=== PATIENT | female | born 1970 | race Caucasian/White ===

== ENCOUNTER 2018-06-18 16:28 | Emergency (ER) | payer BC, OTHER ==
[2018-06-18] MEDS ORDERED: Morphine INJ* 10 MG/ML 1 ML CARPUJECT IV ONE (16:41)
[2018-06-18] MEDS ORDERED: Ondansetron INJ* 2 MG/ML VIAL IV ONE (16:41)
[2018-06-18] MEDS ORDERED: NS 0.9% 1000 ML* 1,000 ML IV ONE (16:41)
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
--- OUTSIDE RECORDS SUMMARY | 2018-06-18 17:03 | XMS REPORT | Continuity of Care Document ---
:1970 External Reference #:[id number] Author Name Becki Rivera NP Address [address] [place] [address] Care Team Providers Name Role Phone Shane Zimmer CONSUMER RELATIONS SPECIALIST Primary Care Physician Unavailable Payers Type Date Identification Numbers Payment Provider Subscriber Policy Number: [id number] [facility] Janneth Carter Group Name: [facility] [address] PayID: [id number] [place] [address] Onset: 2012 Policy Number: [id number] [facility] Insurance Fund Janneth Carter [place]ID: [id number] [place] [address] Onset: 2013 Policy Number: [id number] [facility] Janneth Carter [address] [place] [address] Advance Directives Description No Information Available Problems Date Description Provider Status Onset: 02/06/2012 Anxiety state Cassi Potter M.D. Active Family History Description No Information Available Social History Type Date Description Comments Sex Unknown Occupation Works as a patient health care specialist at [employer] Tobacco Use Start: Unknown regularly smokes cigarettes Tobacco Use Start: Unknown trying to quit down to 6 cigs/day Tobacco Use Start: Unknown Patient is a current smoker, smokes every day Allergies, Adverse Reactions, Alerts Description No Known Drug Allergies Medications Medication Date Status Form Strength Qnty SIG Indications Ordering Provider Naproxen 06/03 Active Tablets 500mg 30tabs one tab M54.5 by mouth Dannile, twice CONSUMER RELATIONS SPECIALIST daily with food for 5 days then as needed for pain/infl ammation up to twice a day Cyclobenzaprine 06/03 Active Tablets 5mg 30tabs Take 1 or M54.5 Becki HCL 2 tablets Shortle, by mouth CONSUMER RELATIONS SPECIALIST 3 times per day as needed for muscle spasm Clotrimazole/Bet 12/16 Active Cream 1-0.05% 15gm 1 apply R21 Jesus amethasone to Theronmn Dipropionate [facility] [place] area twice a day for 2 weeks Cervical 08/09 Active Kit OneKit use as needed Gianluca Zimmer Kit/Overdoor/Com for neck [employer] plete pain Carisoprodol 06/06 Hx Tablets 350mg 60sixty 1 tablet S29.011A three Shayna, - times a [employer] 07/20 day needed muscle spasm Hydrocodone-Acet 06/06 Hx Tablets 5-325mg 20tabs 1 by .011A aminophen mouth q4 Shayna, - - 6 hours [employer] 07/20 as needed Ibuprofen 06/06 Hx Tablets 800mg 120tabs take one .011 tablet by Shayna, - mouth [employer] 1030 every hours with food as needed for pain Tramadol HCL 08/02 Hx Tablets 50mg 20twent 1 po 726.19 y q4-6hr Gianluca Zimmer, - prn [employer] 07/20 severe pain Soma 08/02 Hx Tablets 350mg 30tabs 1 po bid 726.19 prn Gianluca Zimmer, - muscle [employer] 07/20 spasm Permethrin 04/06 Hx Cream 5% 60gm apply to skin from Shayna, - neck to [employer] 05/31 soles feet, wash after 8-14 hours, may repeat in 14 days Gabapentin 11/05 Hx Capsules 300mg 60caps take 1 capsule Gianluca Zimmer, - by mouth [employer] 1030 two times /2014 a day for nerve pain. TENS Unit 10/29 Hx With use if Electrodes needed Gianluca Zimmer, - for [employer] 10/30 shoulder pain per PT direction Naproxen 10/29 Hx Tablets 500mg 30tabs one tab by mouth Gianluca Zimmer, - twice [employer] 07/20 daily with food for pain/infl amation Hydrocodone/Acet 10/29 Hx Tablets 5-325mg 30thirt 1 po q4 wnt aminophen y hrs prn Gianluca Zimmer, - [employer] 08/02 Clotrimazole/Bet 10/07 Hx Cream 1-0.05% 15gm apply to 110.5 [facility] amethasone affected Gianluca Zimmer, Dipropionate - area tid [employer] 07/20 until resolved Methylprednisolo 10/07 Hx Tablets 4mg 1pack take 995.3 Shawnti ne Dose Pack oraly per Gianluca Zimmer, - package [employer] 10/29 direction s Hydroxyzine HCL 10/07 Hx Tablets 25mg 60tabs 1 or 2 po 995.3 nt qid prn Gianluca Zimmer, - itching [employer] 07/20 Carisoprodol 07/09 Hx Tablets 350mg 30tabs take one 719.41 tablet by Gianluca Zimmer, - mouth [employer] 07/20 times daily as needed for muscle spasm Ibuprofen 07/09 Hx Tablets 600mg 30tabs 1 tid prn pain, Gianluca Zimmer, - take with [employer] 10/29 food Paroxetine HCL 02/05 Hx Tablets 10mg 60tabs take one 300.00 tablet by Vanessa - mouth Tariq, 07/20 daily at M.D. bedtime for a week, then increase to two po at bedtime Alprazolam 02/05 Hx Tablets 0.25mg 40tabs 1-2 po up 300.00 to tid Vanessa - prn Tariq, 07/20 anxiety M.D. or 2 at for sleep Robitussin ac 12/03 Hx 150ml 1-2 tsp 487.1 po q4-6hr Gianluca Zimmer, - prn [employer] 05/16 cough/nini n Hydroxyzine HCL 11/07 Hx Tablets 25mg 40tabs 1 or 2 po 704.9 Shawnti qid prn R. Storm, - itching [employer] 11/07 Hydroxyzine HCL 11/07 Hx Tablets 25mg 40tabs 1 po qid Shawnt prn R. Storm, - itching [employer] 05/16 Triamcinolone 11/07 Hx Lotion 0.1% 1Bottle apply to Shawnti Acetonide itchy R. Storm, - spots tid [employer] 05/16 prn itching Excuse For Work 06/08 Hx needs to 465.9 be out of Ambriz, - work M.D. 07/08 until 06/06-06/09 Excuse For Work 04/22 Hx seen Ammy today for P. - acute Blegen, 06/07 visit for M.D. illness/ pharyngit is- needs to be out of work next 1-2 days until feeling better Penicillin VK 09/16 Hx Tablets 500mg 20tabs 1 PO bid Ibis /2006 for 10 A. - days Eduard, 06/07 F.N.P.C. /2009 Vicodin 02/02 Hx Tablets 5mg;500 mg 10tabs one po at 728.71 Ibis hs for A. - severe Eduard, 06/07 pain F.N.P.C. /2009 No Work 02/02 Hx 02/02/07-5 Ibis /2006 A. - due to Eduard, 06/07 plantar F.N.P.C. /2009 fasciitis Kwell Lotion 11/03 Hx 10Oz apply 133.0 overnight Vanessa Potter, 11/03 directed M.D. under the jawline, for patient and partner Elimite 11/03 Hx Cream 5% 133.0 Vanessa Potter, 11/03 M.D. Elimite 11/03 Hx Cream 5% QS apply 133.0 from neck Vanessa - laurence Potter, 06/07 entire M.D. body, leave on for 8 hours, then wash off.for A total of 2 persons in houshold Toradol 10/20 Hx Tablets 10mg 40tabs one po q 6 h prn K.W. - severe Tariq, 06/07 pain, to .D. replace ibuprofen Neurontin 10/20 Hx Capsules 100mg 30caps 1 po qhs prn leg K.W. - pain , Tariq, 06/07.D. increase to 1 po tid prn Medrol Dose Pack 10/20 Hx Pack(S) 4mg/21 1units Use as Directed K.W. - Tariq, 06/07.D. Cipro 03/06 Hx Tablets 250mg 14tabs one bid x Clayton 7 days Ambriz, - M.D. 06/04 Bactrim 01/30 Hx Tablets 80mg;400 mg 10tabs one po 599.0 Ibis bid for 5 A. - days Eduard, 03/11 F.N.P.C. Vermox 09/23 Hx Chewtabs 100mg 4units One qd X1 Peace For Brenda, - Pinworm, M.D. 01/30 Repeat X1 After 7 Days Medications Administered in Office Medication Date Status Form Strength Qnty SIG Indications Ordering Provider TB,Intradermal Administered Injection Lab and (PPD, Mantoux) 012 Office Services TB,Intradermal Administered Injection Lab and (PPD, Mantoux) 011 Office Services Immunizations CPT Code Status Date Vaccine Lot # [id number] Given 05/24/2011 MMR (Measles,Mumps,Rubella) [id number] Given 05/16/2011 Tdap (Adacel) [id number] Given 06/21/2009 MMR (Measles,Mumps,Rubella) [id number] Given 05/02/2003 DT (Adult) Vital Signs Date Vital Result Comment 06/03/2018 9:31am Weight 196.00 lb Weight 88.906 kg BP Systolic 120 mmHg BP Diastolic 80 mmHg Heart Rate 86 /min Body Temperature 98.0 F Respiratory Rate 18 /min 12/16/2017 9:05am Weight 200.00 lb Weight 90.720 kg BP Systolic 120 mmHg BP Diastolic 70 mmHg Heart Rate 74 /min Body Temperature 98.3 F Respiratory Rate 16 /min O2 % BldC Oximetry 98 % 07/20/2015 1:36pm Weight 194.00 lb Weight 87.998 kg BP Systolic 112 mmHg BP Diastolic 80 mmHg Heart Rate 92 /min Body Temperature 98.4 F Height 68 inches 5'8" BMI (Body Mass Index) 29.5 kg/m2 06/11/2015 2:33pm Weight 195.00 lb Weight 88.452 kg BP Systolic 110 mmHg BP Diastolic 80 mmHg Heart Rate 72 /min 06/06/2015 9:49am Weight 192.00 lb Weight 87.091 kg BP Systolic 120 mmHg BP Diastolic 78 mmHg Heart Rate 76 /min 08/02/2013 3:56pm Weight 189.00 lb Weight 85.730 kg BP Systolic 110 mmHg BP Diastolic 72 mmHg Heart Rate 80 /min Body Temperature 98.0 F Height 68 inches 5'8" BMI (Body Mass Index) 28.7 kg/m2 11/22/2012 11:08am Weight 189.00 lb Weight 85.730 kg BP Systolic 106 mmHg BP Diastolic 68 mmHg Heart Rate 108 /min Body Temperature 97.7 F 11/05/2012 11:14am Weight 190.00 lb Weight 86.184 kg BP Systolic 136 mmHg BP Diastolic 88 mmHg Heart Rate 116 /min Body Temperature 98.4 F O2 % BldC Oximetry 99 % 10/29/2012 12:11pm Weight 188.00 lb Weight 85.277 kg BP Systolic 130 mmHg BP Diastolic 70 mmHg Heart Rate 118 /min 10/25/2012 2:22pm Weight 188.00 lb Weight 85.277 kg BP Systolic 120 mmHg BP Diastolic 80 mmHg Heart Rate 88 /min Body Temperature 97.8 F 10/07/2012 4:34pm Weight 187.00 lb Weight 84.823 kg BP Systolic 114 mmHg BP Diastolic 72 mmHg Heart Rate 108 /min Body Temperature 97.9 F 07/13/2012 2:11pm Weight 178.00 lb Weight 80.741 kg BP Systolic 98 mmHg BP Diastolic 60 mmHg Heart Rate 82 /min 07/09/2012 10:57am Weight 178.00 lb Weight 80.741 kg BP Systolic 108 mmHg BP Diastolic 60 mmHg Heart Rate 83 /min 02/18/2012 11:52am Weight 172.00 lb Weight 78.019 kg BP Systolic 140 mmHg BP Diastolic 78 mmHg Heart Rate 76 /min Body Temperature 97.8 F 02/06/2012 11:52am Weight 174.00 lb Weight 78.926 kg BP Systolic 120 mmHg BP Diastolic 90 mmHg Heart Rate 88 /min 06/04/2011 9:12am Weight 163.00 lb Weight 73.937 kg BP Systolic 118 mmHg BP Diastolic 64 mmHg Heart Rate 100 /min Last Menstrual Period [id number] 05/16/2011 8:09am Weight 163.00 lb Weight 73.937 kg BP Systolic 104 mmHg BP Diastolic 56 mmHg Heart Rate 96 /min Body Temperature 98.0 F Right Visual Acuity Distance 20/25 Left Visual Acuity Distance 20/25 12/03/2010 11:06am Weight 170.00 lb Weight 77.112 kg BP Systolic 116 mmHg BP Diastolic 70 mmHg Heart Rate 76 /min Body Temperature 98.2 F 11/07/2010 2:49pm Weight 172.00 lb Weight 78.019 kg BP Systolic 112 mmHg BP Diastolic 70 mmHg Heart Rate 88 /min Body Temperature 97.6 F 06/08/2010 9:39am Weight 154.00 lb Weight 69.854 kg BP Systolic 110 mmHg BP Diastolic 78 mmHg Heart Rate 88 /min Body Temperature 98.5 F 04/22/2008 10:22am BP Systolic 112 mmHg BP Diastolic 66 mmHg Heart Rate 78 /min Body Temperature 97.8 F 02/02/2007 12:17pm Weight 147.00 lb Weight 66.679 kg BP Systolic 120 mmHg BP Diastolic 70 mmHg Heart Rate 64 /min 11/03/2006 10:47am BP Systolic 102 mmHg BP Diastolic 60 mmHg Heart Rate 76 /min Body Temperature 97.6 F 10/20/2006 11:59am Weight 147.50 lb Weight 66.906 kg BP Systolic 120 mmHg BP Diastolic 68 mmHg Heart Rate 68 /min 03/11/2005 11:12am Weight 145.00 lb Weight 65.772 kg BP Systolic 108 mmHg BP Diastolic 70 mmHg Body Temperature 97.8 F 03/06/2005 4:37pm Weight 147.00 lb Weight 66.679 kg BP Systolic 112 mmHg BP Diastolic 66 mmHg Body Temperature 98.2 F 01/30/2005 11:15am Weight 144.00 lb Weight 65.318 kg BP Systolic 102 mmHg BP Diastolic 68 mmHg Body Temperature 98.0 F Results Test Date Facility Test Result H/L Range Note Laboratory test 07/20/2015 [facility] TSH 1.56 ?IU/ mL 0.34-5.60 finding [phone] (Thyroid Stim Horm) CBC Auto Diff 07/20/2015 [facility] White Blood 7.8 10^3/uL 4.8-10.8 [phone] Count Red Blood Count 4.52 10^6/uL 4.0-5.4 Hemoglobin 14.2 g/dL 12.0-16.0 Hematocrit 43 % 35-47 Mean Corpuscular Volume 95 fL 80-97 Mean Corpuscular Hemoglobin 32 pg High 27-31 Mean Corpuscular HGB Conc 33 g/dL 31-36 Red Cell Distribution Width 13 % 10.5-15 Platelet Count 258 10^3/uL 150-450 Mean Platelet Volume 9 um3 7.4-10.4 Abs Neutrophils 4.7 10^3/uL 1.5-7.7 Abs Lymphocytes 2.3 10^3/uL 1.0-4.8 Abs Monocytes 0.5 10^3/uL 0-0.8 Abs Eosinophils 0.1 10^3/uL 0-0.6 Abs Basophils 0 10^3/uL 0-0.2 Abs Nucleated RBC 0 10^3/uL Granulocyte % 60.9 % 38-83 Lymphocyte % 30.1 % 25-47 Monocyte % 7.0 % 1-9 Eosinophil % 1.4 % 0-6 Basophil % 0.6 % 0-2 Nucleated Red Blood Cells % 0 Comp Metabolic Panel 07/20/2015 [facility] Sodium 134 mmol/L 133-145 [phone] Potassium 4.4 mmol/L 3.5-5.0 Chloride 105 mmol/L 101-111 Co2 Carbon Dioxide 26 mmol/L 22-32 Anion Gap 3 mmol/L 2-11 Glucose 83 mg/dL 70-100 Blood Urea Nitrogen 18 mg/dL 6-24 Creatinine 0.89 mg/dL 0.51-0.95 BUN/Creatinine Ratio 20.2 High 8-20 Calcium 9.2 mg/dL 8.6-10.3 Total Protein 6.5 g/dL 6.4-8.9 Albumin 4.1 g/dL 3.2-5.2 Globulin 2.4 g/dL 2-4 Albumin/Globulin Ratio 1.7 1-3 Total Bilirubin 0.40 mg/dL 0.2-1.0 Alkaline Phosphatase 48 U/L 34-104 Alt 11 U/L 7-52 Ast 10 U/L Low 13-39 Egfr Non- 68.9 >60 Egfr 88.6 >60 1 Lipid Profile 07/20/2015 [facility] Triglycerides 144 mg/dL 2 (Trig/Chol/HDL) [phone] Cholesterol 161 mg/dL 3 HDL Cholesterol 64.1 mg/dL 4 LDL Cholesterol 68 mg/dL 5 CBC No Diff 11/05/2012 [facility] White Blood 5.8 10^ 3/uL 4.8-10.8 [phone] Count Red Blood Count 4.35 10^6/uL 4.0-5.4 Hemoglobin 13.7 g/dL 12.0-16.0 Hematocrit 40 % 35-47 Mean Corpuscular Volume 92 fL 80-97 Mean Corpuscular Hemoglobin 32 pg High 27-31 Mean Corpuscular HGB Conc 34 g/dL 31-36 Red Cell Distribution Width 13 % 10.5-15 Platelet Count 279 10^3/uL 150-450 Mean Platelet Volume 9 um3 7.4-10.4 Comp Metabolic Panel 11/05/2012 [facility] Sodium 135 mmol/L 133-145 [phone] Potassium 4.4 mmol/L 3.5-5.0 Chloride 105 mmol/L 101-111 Co2 Carbon Dioxide 24.0 mmol/L 22-32 Anion Gap 6.0 mmol/L 2-11 Glucose 90 mg/dL 70-100 Blood Urea Nitrogen 12 mg/dL 6-24 Creatinine 0.90 mg/dL 0.50-1.40 BUN/Creatinine Ratio 13.3 8-20 Calcium 9.1 mg/dL 8.1-9.9 Total Protein 6.3 g/dL 6.2-8.1 Albumin 3.8 g/dL 3.6-5.4 Globulin 2.5 g/dL 2-4 Albumin/Globulin Ratio 1.5 1-3 Total Bilirubin 0.6 mg/dL 0.4-1.5 Alkaline Phosphatase 45 U/L 30-110 Alt 17 U/L 14-54 Ast 18 U/L 12-42 Egfr Non- 69.0 >60 Egfr 88.7 >60 6 Laboratory test 11/05/2012 [facility] TSH (Thyroid 2.07 0.34-5.60 finding [phone] Stimulating miu/mL Horm) Erythrocyte Sed Rate 10 mm/Hr 0-14 Shannan (Anti-Nuclear AB) Screen Negative Negative Wheat Allergen IgE <0.35 kU/L 7 Antistreptolysin O Titer Negative IU/mL <200 Iu/mL 8 Celiac Panel 11/05/2012 [facility] Immunoglobulin A 210 mg/dL 61 - 356 [phone] Tissue Transglutaminase IgA Ab <1.2 U/mL 9 Celiac Interpretation See Comment 10 Laboratory test 11/05/2012 [facility] Cat Epithelium <0.35 kU/L 11 finding [phone] Allergen IgE Dog Dander Allergen IgE <0.35 kU/L 12 Alternaria tenuis IgE Allergen <0.35 kU/L 13 Aspergillus Fumigatus IgE <0.35 kU/L 14 Cladosporium herbarum IgE <0.35 kU/L 15 Helminthosporium halodes IgE <0.35 kU/L 16 Mucor racemosus Allergen IgE <0.35 kU/L 17 Penicillium notatum Allerg IgE <0.35 kU/L 18 Joya albicans Allergen IgE 9.90 kU/L 19 Comp Metabolic Panel 02/06/2012 [facility] Sodium 136 mmol/L 135-145 [phone] Potassium 4.2 mmol/L 3.5-5.0 Chloride 106 mmol/L 101-111 Co2 (Carbon Dioxide) 25.0 mmol/L 22-32 Anion Gap 5.0 mmol/L 2-11 20 Glucose 95 mg/dL 70-100 BUN 11 mg/dL 6-24 Creatinine 0.9 mg/dL 0.50-1.40 One Over Creatinine 1.11 BUN/Creatinine Ratio 12.2 8-20 Calcium 9.3 mg/dL 8.1-9.9 Total Protein 6.3 GM/DL 6.2-8.1 Albumin 3.7 GM/DL 3.6-5.4 Globulin 2.6 GM/DL 2-4 Albumin/Globulin Ratio 1.4 1-3 Bilirubin Total 0.6 mg/dL 0.4-1.5 21 Alkaline Phosphatase 40 U/L 30-110 Alt (SGPT) 15 U/L 14-54 Ast (Sgot) 16 U/L 12-42 eGFR Non- 69.3 > 60 eGFR 89.2 > 60 22 CBC Auto Diff 02/06/2012 [facility] White Blood 7.8 CUMM 4.8-10.8 [phone] Count Red Cell Count 4.37 CUMM 4.2-5.4 Hemoglobin 14.2 g/dL 12.0-16.0 Hematocrit 40 % 35-47 Mean Corpuscular Volume 92 um3 79-97 Mean Corpuscular Hemoglob 32 pg High 27-31 Mean Corpuscular HGB Cone 35 g/dL 32-36 Redcell Distribution WDTH 13 % 10.5-15 Platelet Count 229 CUMM 150-450 Mean Platelet Volume 9.6 um3 7.4-10.4 Gran % 67.9 % 38-83 Lymph % 23.6 % Low 25-47 Mononuclear % 7.3 % 1-9 Eosinophil % 1.0 % 0-6 Basophil % 0.2 % 0-2 Abs Lymphs 1.8 1.0-4.8 Abs Mononuclear 0.6 0-0.8 Absolute Neutrophil Count 5.3 1.5-7.7 Abs Eosinophils 0.1 0-0.6 Abs Basophils 0 0-0.2 Laboratory test 02/06/2012 [facility] TSH 1.92 MIU/ ML 0.34-5.60 finding [phone] Laboratory test 06/04/2011 [facility] Cytology ------ ------ 23 finding [phone] ---- <SEE NOTE> Urine DIP 05/16/2011 [facility] Leukocytes neg Neg (607)- - Urine Nitrites neg Neg Urine pH 5 5-6 Total Protein, Urine neg Neg Urine Glucose norm Norm Urine Ketones neg Neg Urobilinogen norm Norm Urine Bilirubin neg Neg Urine Blood neg Neg Specific [place] n/a Low 1.01-1.02 Laboratory test 05/16/2011 [facility] Varicella 2.03 High 0.00-0.90 24 finding [phone] Zoster V index AB,Igg Hep B Surface Antibody 108 mIU/ml 25 Laboratory test 12/03/2010 In House Lab Flu Test A&B, pos finding (607)- - [facility] test 06/08/2010 In House Lab Flu Test A&B, neg finding (607)- - [facility] test 04/22/2008 In House Lab Strep Screen neg Neg finding (607)- - Laboratory test 04/22/2008 [facility] Throat Culture NORMAL THROAT 26 finding [phone] Full [place] <SEE NOTE> Mumps/Measles/Rube 12/31/2007 [facility] Mumps Titer Igg 0.80 Index 27 lla [phone] AB Rubeola Titer Igg AB 2.10 Index 28 Rubella Titer Igg AB 56.0 IU/mL 29 Urine DIP 03/11/2005 In House Lab Leukocytes NEG Neg (607)- - Urine Nitrites NEG Neg Urine pH 5 5-6 Total Protein, Urine NEG Neg Urine Glucose NORM Norm Urine Ketones NEG Neg Urobolinogen NORM Norm Urine Bilirubin NEG Neg Urine Blood NEG Neg Urine DIP 03/06/2005 In House Lab Leukocytes NEG Neg (607)- - Urine Nitrites NEG Neg Urine pH 5 5-6 Total Protein, Urine NEG Neg Urine Glucose NORM Norm Urine Ketones NEG Neg Urobolinogen NORM Norm Urine Bilirubin NEG Neg Urine Blood TRACE Neg Specific [place] NA Low 1.01-1.02 Laboratory test 03/06/2005 [facility] Urine Culture MANY [STAPHYLOCO 30 finding [phone] Sensitivi <SEE NOTE> Urine DIP 01/30/2005 [facility] House Lab Leukocytes NEG Neg (607)- - Urine Nitrites NEG Neg Urine pH 5 5-6 Total Protein, Urine NEG Neg Urine Glucose NORM Norm Urine Ketones NEG Neg Urobolinogen NORM Norm Urine Bilirubin NE Neg Urine Blood 250 High Neg 1 Because ethnic data is not always readily available, this report includes an eGFR for both -Americans and non- Americans. The National Kidney Disease Education Program (NKDEP) does not endorse the use of the MDRD equation for patients that are not between the ages of 18 and 70, are , have extremes of body size, muscle mass, or nutritional status, or are non- or non-. According to the National Kidney Foundation, irrespective of diagnosis, the stage of the disease is based on the level of kidney function: Stage Description GFR(mL/min/1.73 m(2)) 1 Kidney damage with normal or decreased GFR 90 2 Kidney damage with mild decrease in GFR 60-89 3 Moderate decrease in GFR 30-59 4 Severe decrease in GFR 15-29 5 Kidney failure <15 (or dialysis) 2 Desirable <150 Borderline high 150-199 High 200-499 Very High >500 3 Desirable <200 Borderline high 200-239 High >239 4 Low <40 Desirable: 40-60 High: >60 5 Desirable: <100 mg/dL Near Optimal: 100-129 mg/dL Borderline High: 130-159 mg/dL High: 160-189 mg/dL Very High: >189 mg/dL 6 Because ethnic data is not always readily available, this report includes an eGFR for both -Americans and non- Americans. The National Kidney Disease Education Program (NKDEP) does not endorse the use of the MDRD equation for patients that are not between the ages of 18 and 70, are , have extremes of body size, muscle mass, or nutritional status, or are non- or non-. According to the National Kidney Foundation, irrespective of diagnosis, the stage of the disease is based on the level of kidney function: Stage Description GFR(mL/min/1.73 m(2)) 1 Kidney damage with normal or decreased GFR 90 2 Kidney damage with mild decrease in GFR 60-89 3 Moderate decrease in GFR 30-59 4 Severe decrease in GFR 15-29 5 Kidney failure <15 (or dialysis) 7 Class 0 (Negative <0.35) Test Performed by: [place] [address] Medical Claims Specialist: Speedy Leary III, M.D. 8 Normal values may vary with age, season and geographic area. Titers above upper limits may be indicative of infection, however only a two dilution rise in titer is required to be considered significant. ASO titer will usually rise above upper limits within one week of exposure, increase to peak levels at 3-5 weeks and return to baseline level at 6-12 twelve months. 9 -- REFERENCE VALUE -- <4.0 (Negative) Test Performed by: [place] [address] Medical Claims Specialist: Speedy Leary III, M.D. 10 Negative serology. Celiac disease unlikely. However, approximately 10% of patients with celiac disease are seronegative. Also, patients who are already adhering to a gluten-free diet may be seronegative. If celiac disease is highly clinically suspected, consider HLA-DQ typing. Test Performed by: [place] [address] Medical Claims Specialist: Speedy Leary III, M.D. 11 Class 0 (Negative <0.35) Test Performed by: [place] [address] Medical Claims Specialist: Speedy Leary III, M.D. 12 Class 0 (Negative <0.35) Test Performed by: [place] [address] Medical Claims Specialist: Speedy Leary III, M.D. 13 Class 0 (Negative <0.35) Test Performed by: [place] [address] Medical Claims Specialist: Speedy Leary III, M.D. 14 Class 0 (Negative <0.35) Test Performed by: [place] [address] Medical Claims Specialist: Speedy Leary III, M.D. 15 Class 0 (Negative <0.35) Test Performed by: [place] [address] Medical Claims Specialist: Speedy Leary III, M.D. 16 Class 0 (Negative <0.35) Test Performed by: [place] [address] Medical Claims Specialist: Speedy Leary III, M.D. 17 Class 0 (Negative <0.35) Test Performed by: [place] [address] Medical Claims Specialist: Speedy Leary III, M.D. 18 Class 0 (Negative <0.35) Test Performed by: [place] [address] Medical Claims Specialist: Speedy Leary III, M.D. 19 Class 3 (Positive 3.50-17.4) Test Performed by: [address] [address] Medical Claims Specialist: Speedy Leary III, M.D. 20 Anion gap measurement may be of limited value in the presence of any alkalosis, especially in a combined acid base disorder. . 21 A metabolite of Naproxen, O-desmethylnaproxen, has been shown to interfere with the Jendrassik-Tiffanie method for measuring total bilirubin. Samples from patients who have taken Naproxen have shown spurious elevation in total bilirubin levels. 22 Because ethnic data is not always readily available, this report includes an eGFR for both -Americans and non- Americans. The National Kidney Disease Education Program (NKDEP) does not endorse the use of the MDRD equation for patients that are not between the ages of 18 and 70, are , have extremes of body size, muscle mass, or nutritional status, or are non- or non-. According to the National Kidney Foundation, irrespective of diagnosis, the stage of the disease is based on the level of kidney function: Stage Description GFR(mL/min/1.73 m(2)) 1 Kidney damage with normal or decreased GFR 90 2 Kidney damage with mild decrease in GFR 60-89 3 Moderate decrease in GFR 30-59 4 Severe decrease in GFR 15-29 5 Kidney failure <15 (or dialysis) 23 ---- RUN DATE: 06/05/11 [facility] NMI LIVE PAGE 1 RUN TIME: 1500 Specimen Inquiry RUN USER: INTERFACE -- Name: JANNETH CARTER Status: REG REF Re06/04/11 Age/Sex: 41/F Unit#: [id number] Location: [facility] : 72 -- Specimen: [id number] SOUT Spec Date: 06/04/[address]: Ceci sheffield NP Spec Type: CYTOLOGY Received: 06/05/11 Copies to: SOURCE ECTOCERVICAL/ENDOCERVICAL Thin Prep with Reflex HPV Test PATIENT INFORMATION ACTUAL COLLECTION DATE: 06/04/11 LAST MENSTRUAL PERIOD: 05/21/11 PATIENT HISTORY: IUD ADEQUACY OF SPECIMEN Satisfactory for evaluation * Transformation zone component identified * DIAGNOSIS NEGATIVE FOR INTRAEPITHELIAL LESION OR MALIGNANCY * This Pap test was evaluated with the assistance of the ThinPrep Pap Test Imaging System. The Pap Smear is a screening test designed to aid in the detection of premalign ant and malignant conditions of the uterine cervix. It is not a diagnostic procedure a nd should not be used as the sole means of detecting cervical cancer. Both false- positiv e and false-negative reports do occur. Depending on your risk status, a Pap smear eliane uld be obtained and evaluated every one to three years. Final Interpretation electronically signed by: Nura HUGHES(ASCP) 06/05/11 1500 -- -- DEPARTMENT OF PATHOLOGY, [address] [place] [address] [facility] Permit #[id number] Kyle Serna M.D. Director Jacob Ortega M.D. Roper Operator Dir rome -- 24 Negative <0.91 Equivocal 0.91 - 1.09 Positive >1.09 25 The CDC defines an adequate response to vaccinations as a result >=10 mIU/ml. Results 8-12 mIU/ml are considered equivocal and should be interpreted in the context of other factors (clinical status, follow-up testing, associated risk factors etc.). Repeat testing is suggested if clinically indicated. 26 NORMAL THROAT URBANO 27 < .90 Neg (No Immunity) .91- 1.09 Equivocal >=1.10 Positive . 28 < 0.90 Neg (No Immunity) 0.91- 1.09 Equivocal >=1.10 Positive . 29 Negative(Nonimmune): < 5.0 Equivocal: 5.0 - 10.0 Positive(Immune): > 10.0 30 MANY [STAPHYLOCOCCUS SAPROPHYTICUS] Routine testing of urine isolates of S. saprophyticus is not advised, because infections respond to concentrations achieved in urine of antimicrobial agents commonly used to treat acute, uncomplicated urinary tract infections (e.g. nitrofurantoin, trimethoprim+/- sulfamethoxazole, or a fluoroquinolone). NCCLS September 2001 STAPHYLOCOCCUS SAPROPHYTICUS Procedures Description No Information Available Encounters Type Date Location Provider Dx Diagnosis Office Visit 12/16/2017 Main Office Jesus Leonardonohemi, R21 Rash and other 9:00a nonspecific skin eruption Z12.31 Encntr screen mammogram for malignant neoplasm of breast Office Visit 07/20/2015 1:30p Main Office Shane Zimmer, Z00.00 Encntr for general [employer] adult medical exam w/o abnormal findings S46.012S Strain of musc/tend the rotator cuff of l shoulder, sequela Office Visit 06/11/2015 2:30p Main Office Shane Hough S29.011A Strain of muscle Storm, [employer] and tendon of front wall of thorax, init Office Visit 06/06/2015 9:45a Main Office Ceci Corral S29.011A Strain of muscle [employer] and tendon of front wall of thorax, init Office Visit 08/02/2013 3:45p Main Office Shane Hough 726.19 Shoulder Storm, [employer] Disorders Other Spec 729.2 Neuralgia Neuritis & Radiculitis Unspec Office Visit 05/31/2013 10:45a Main Office Shane Zimmer, 726.19 Shoulder Disorders [employer] Other Spec 723.1 Cervicalgia 850.9 Concussion Unspec 924.8 Contusion Multiple Sites Not Class Elsewhere Office Visit 11/22/2012 11:00a Main Office Shane Zimmer, [employer] 723.1 Cervicalgia 726.19 Shoulder Disorders Other Spec Office Visit 11/05/2012 11:48a Main Office Shane Zimmer, 726.19 Shoulder Disorders [employer] Other Spec 691.8 Dermatitis Atopic & Related Conditions Other Office Visit 11/05/2012 11:15a Main Office Shane Zimmer [employer] 723.1 Cervicalgia 726.19 Shoulder Disorders Other Spec Office Visit 10/29/2012 12:00p Main Office Shane Zimmer [employer] 723.1 Cervicalgia 726.19 Shoulder Disorders Other Spec Office Visit 10/25/2012 2:15p Main Office Shane Hough Storm, [employer] 723.1 Cervicalgia 726.19 Shoulder Disorders Other Spec Office Visit 10/07/2012 4:30p Main Office Shane Hough 110.5 Dermatophytosis Body Storm, [employer] 995.3 Allergy Unspec Office Visit 07/13/2012 2:00p Main Office Shane Hough 723.1 Cervicalgia Storm, [employer] Office Visit 02/18/2012 11:30a Main Office Cassi Mendez 300.00 Anxiety State Sarah Potter Unspec Office Visit 02/06/2012 11:45a Main Office Cassi Mendez 300.00 Anxiety State Sarah Potter Unspec Office Visit 06/04/2011 9:00a Main Office Ceci Corral, V72.31 Routine Intellectual Property Legal Assistant [employer] Examination Office Visit 05/16/2011 8:00a Main Office Ceci Corral, V70.0 Examination General [employer] Medical Routine [facility] V06.1 Hzczaltzuv-Ebwhiod-Hfyozjpd Combined (DTaP) Office Visit 12/03/2010 10:45a Main Office Shane Hough 487.1 Influenza W/ Other Storm, [employer] Respiratory Manifestations Office Visit 11/07/2010 3:00p Main Office Shane Hough 704.9 Hair & Hair Follicle Storm, [employer] Diseases Unspec Office Visit 06/08/2010 9:30a Main Office Clayton Ambriz, 465.9 URI Upper M.D. Respiratory Infections Acute Unspec Sites Office Visit 04/22/2008 10:15a Main Office Ammy Purcell 462 Pharyngitis Acute Blegen, M.D. Office Visit 02/02/2007 12:15p Main Office Ibis Nahs8.71 Fibromatosis Plantar Eduard, Fascia F.N.P.C. Office Visit 11/03/2006 10:45a Main Office Cassi Mendez 133.0 Scabies Sarah Potter 133.0 Scabies Office Visit 03/11/2005 11:00a Main Office Cassi Mendez 592.0 Calculus Of Sarah Potter Kidney 599.89 Urinary Tract Other Spec Disorders Office Visit 03/06/2005 4:30p Main Office Clayton Ambriz M.D. 599.0 UTI Urinary Tract Infection Site Not Spec Office Visit 01/30/2005 11:00a Main Office Ibis Ybarra 599.0 UTI Urinary Tract Heidy Chapa Infection Site Not Spec Plan of Treatment 06/03/2018 - Becki Rivera, NPM54.5 Low back painNew Medication:Naproxen 500 mg - one tab by mouth twice daily with food for 5 days then as needed for pain/ inflammation up to twice a dayCyclobenzaprine HCL 5 mg - Take 1 or 2 tablets by mouth 3 times per day as needed for muscle spasmComments:No acute concerns today.Supportive care and medications discussedPatient to follow up next week for reassessmentWork note provided.Educated on new/worsening symptoms and when to call/return. Patient stated understanding and agrees to planFollow up:print work note follow up next week
--- OUTSIDE RECORDS SUMMARY | 2018-06-18 17:03 | XMS REPORT | Continuity of Care Document ---
:1970 External Reference #:[id number] Author Name Becki Rivera NP Address [address] [place] [address] Care Team Providers Name Role Phone Shane Zimmer HEAD FIELD HOCKEY COACH Primary Care Physician Unavailable Payers Type Date Identification Numbers Payment Provider Subscriber Policy Number: [id number] [facility] Janneth Hsu Group Name: [place] [address] PayID: [id number] [place] [address] Onset: 2012 Policy Number: [id number] [facility] Insurance [facility] Janneth Hsu PayID: [id number] [facility] [place] [place] [address] Onset: 2013 Policy Number: [id number] [facility] Janneth Hsu [address] [place] [address] Onset: 2018 PayID: [place] [facility] Insurance [facility] Janneth Hsu [address] [address] [place] [address] Advance Directives Description No Information Available Problems Date Description Provider Status Onset: 02/06/2012 Anxiety state Cassi Potter M.D. Active Family History Description No Information Available Social History Type Date Description Comments Sex Unknown Occupation Works as a patient med care manager at [employer] Tobacco Use Start: Unknown regularly smokes cigarettes Tobacco Use Start: Unknown trying to quit down to 6 cigs/day Tobacco Use Start: Unknown Patient is a current smoker, smokes every day Allergies, Adverse Reactions, Alerts Description No Known Drug Allergies Medications Medication Date Status Form Strength Qnty SIG Indications Ordering Provider Naproxen 06/03 Active Tablets 500mg 30tabs one tab by mouth Shortle, twice HEAD FIELD HOCKEY COACH daily with food for 5 days then as needed for pain/infl ammation up to twice a day Cyclobenzaprine 06/03 Active Tablets 5mg 30tabs Take 1 or Becki HCL 2 tablets Shortle, by mouth HEAD FIELD HOCKEY COACH 3 times per day as needed for muscle spasm Clotrimazole/Bet 12/16 Active Cream 1-0.05% 15gm 1 apply R21 Jesus amethasone to Mariposa gary MD area twice a day for 2 weeks Cervical 08/09 Active Kit OneKit use as nti needed Gianluca Zimmer Kit/[employer] for neck HL7 INTERFACE DEVELOPER-C plete pain Carisoprodol 06/06 Hx Tablets 350mg 60sixty 1 tablet S29.011A three Shayna, - times a HL7 INTERFACE DEVELOPER-C 07/20 day needed muscle spasm Hydrocodone-Acet 06/06 Hx Tablets 5-325mg 20tabs 1 by S2.011A Ceci aminophen mouth q4 Shayna, - - 6 hours HL7 INTERFACE DEVELOPER-C 1030 as needed Ibuprofen 06/06 Hx Tablets 800mg 120tabs take one . tablet by Shayna, - mouth HL7 INTERFACE DEVELOPER-C 1030 every hours with food as needed for pain Tramadol HCL 08/02 Hx Tablets 50mg 20twent 1 po 726.19 y q4-6hr Gianluca Zimmer, - prn [employer]7 INTERFACE DEVELOPER-C 30 severe pain Soma 08/02 Hx Tablets 350mg 30tabs 1 po bid 726.19 prn Gianluca Zimmer, - muscle [employer]7 INTERFACE DEVELOPER-C 07/20 spasm Permethrin 04/06 Hx Cream 5% 60gm apply to skin from Shayna, - neck to [employer]7 INTERFACE DEVELOPER-C 05/31 soles of feet, wash after 8-14 hours, may repeat in 14 days Gabapentin 11/05 Hx Capsules 300mg 60caps take 1 capsule Gianluca Zimmer, - by mouth [employer]7 INTERFACE DEVELOPER-C 1030 two times a day for nerve pain. TENS Unit 10/29 Hx With use if Shawnti /2013 Electrodes needed Gianluca Zimmer, - for HL7 INTERFACE DEVELOPER-C 07/20 pain per PT direction Naproxen 10/29 Hx Tablets 500mg 30tabs one tab by mouth Gianluca Zimmer, - twice HL7 INTERFACE DEVELOPER-C 07/20 daily with food for pain/infl amation Hydrocodone/Acet 10/29 Hx Tablets 5-325mg 30thirt 1 po q4 aminophen y hrs prn Gianluca Zimmer, - HL7 INTERFACE DEVELOPER-C 08/02 Clotrimazole/Bet 10/07 Hx Cream 1-0.05% 15gm apply to 110.5 [facility] amethasone affected Gianluca Zimmer Dipropionate - area tid HL7 INTERFACE DEVELOPER-C 07/20 until resolved Methylprednisolo 10/07 Hx Tablets 4mg 1pack take 995.3 Shawnti ne Dose oraly per Gianluca Zimmer, - package HL7 INTERFACE DEVELOPER-C 10/29 direction s Hydroxyzine HCL 10/07 Hx Tablets 25mg 60tabs 1 or 2 po 995.3 qid prn Gianluca Zimmer, - itching HL7 INTERFACE DEVELOPER-C 07/20 Carisoprodol 07/09 Hx Tablets 350mg 30tabs take one 719.41 tablet by Gianluca Zimmer, - mouth HL7 INTERFACE DEVELOPER-C 07/20 times daily as needed for muscle spasm Ibuprofen 07/09 Hx Tablets 600mg 30tabs 1 tid prn pain, Gianluca Zimmer, - take with HL7 INTERFACE DEVELOPER-C 10/29 Paroxetine HCL 02/05 Hx Tablets 10mg 60tabs take one 300.00 tablet by Vanessa - mouth Tariq, 07/20 daily at M.D. bedtime for a week, then increase to two po at bedtime Alprazolam 02/05 Hx Tablets 0.25mg 40tabs 1-2 po up 300.00 to tid K.WGrupo - prn Tariq, 07/20 anxiety M.D. or 2 at for sleep Robitussin ac 12/03 Hx 150ml 1-2 tsp 487.1 po q4-6hr R. Storm, - prn HL7 INTERFACE DEVELOPER-C 05/16 cough/nini n Hydroxyzine HCL 11/07 Hx Tablets 25mg 40tabs 1 or 2 po 704.9 Shawnt qid prn R. Storm, - itching HL7 INTERFACE DEVELOPER-C 11/07 Hydroxyzine HCL 11/07 Hx Tablets 25mg 40tabs 1 po qid Shawnt prn R. Storm, - itching HL7 INTERFACE DEVELOPER-C 05/16 Triamcinolone 11/07 Hx Lotion 0.1% 1Bottle apply to wnti Acet itchy R. Storm, - spots tid HL7 INTERFACE DEVELOPER-C 05/16 prn itching Excuse For Work 06/08 [...] Tablets 500mg 20tabs 1 PO bid Ibis for 10 A. - days Eduard, 06/07 F.N.P.C. Vicodin 02/02 Hx Tablets 5mg;500 mg 10tabs one po at 728.71 Ibis hs for A. - severe Eduard, 06/07 pain F.N.P.C. No Work 02/02 Hx 02/02/07-5 Ibis /2006 /06/04 A. - due to Eduard, 06/07 plantar F.N.P.C. /2009 fasciitis Kwell Lotion 11/03 Hx 10Oz apply 133.0 overnight Vanessa Potter, 11/03 directed M.D. under the jawline, for patient and partner Elimite 11/03 Hx Cream 5% 133.0 Vanessa Potter, 11/03 M.D. Elimite 11/03 Hx Cream 5% QS apply 133.0 from neck K.W. - over Tariq, 06/07 entire .D. body, leave on for 8 hours, then wash off.for A total of 2 persons in houshold Toradol 10/20 Hx Tablets 10mg 40tabs one po q 6 h prn K.W. - severe Tariq, 06/07 pain, to M.D. replace ibuprofen Neurontin 10/20 Hx Capsules 100mg 30caps 1 po qhs prn leg K.W. - pain , Tariq, 06/07.D. increase to 1 po tid prn Medrol Dose Pack 10/20 Hx Pack(S) 4mg/ 1units Use as Directed Dany.Gemma - Tariq, 06/07.D. Cipro 03/06 Hx Tablets 250mg 14tabs one bid x Clayton 7 days Ambriz, - M.D. 06/04 Bactrim 01/30 Hx Tablets 80mg;400 mg 10tabs one po 599.0 Ibis bid for 5 A. - days Eduard, 03/11 F.N.P.C. Vermox 09/23 Hx Chewtabs 100mg 4units One qd X1 For Brenda, - Pinworm, M.D. 01/30 Repeat After 7 Days Medications Administered in Office Medication Date Status Form Strength Qnty SIG Indications Ordering Provider TB,Intradermal Administered Injection Lab and (PPD, Mantoux) 012 Office Services TB,Intradermal Administered Injection Lab and (PPD, Mantoux) 011 Office Services Immunizations CPT Code Status Date Vaccine Lot # [id number] Given 05/24/2011 MMR (Measles,Mumps,Rubella) [id number] Given 05/16/2011 Tdap (Adacel) [id number] 96435 Given 06/21/2009 MMR (Measles,Mumps,Rubella) [id number] Given 05/02/2003 DT (Adult) Vital Signs Date Vital Result Comment 06/10/2018 9:24am Weight 194.00 lb Weight 87.998 kg BP Systolic 110 mmHg BP Diastolic 70 mmHg Heart Rate 94 /min Body Temperature 97.0 F Respiratory Rate 16 /min 06/03/2018 9:31am Weight 196.00 lb Weight 88.906 [...] Heart Rate 100 /min Last Menstrual Period [id number] 05/16/2011 8:09am Weight 163.00 lb Weight 73.937 [...] Result H/L Range Note Laboratory test 07/20/2015 [facility] TSH 1.56 ?IU/ mL 0.34-5.60 finding [phone] (Thyroid Stim Horm) CBC Auto Diff 07/20/2015 [facility] White Blood 7.8 10^3/uL 4.8-10.8 [phone] Count Red Blood Count 4.52 10^6/uL 4.0-5.4 [...] Cells % 0 Comp Metabolic Panel 07/20/2015 [facility] Sodium 134 mmol/L 133-145 [phone] Potassium 4.4 mmol/L 3.5-5.0 Chloride 105 mmol/L [...] Egfr 88.6 >60 1 Lipid Profile 07/20/2015 [facility] Triglycerides 144 mg/dL 2 (Trig/Chol/HDL) [phone] Cholesterol 161 mg/dL 3 HDL Cholesterol 64.1 mg/dL 4 LDL Cholesterol 68 mg/dL 5 CBC No Diff 11/05/2012 [facility] White Blood 5.8 10^ 3/uL 4.8-10.8 [phone] Count Red Blood Count 4.35 10^6/uL 4.0-5.4 Hemoglobin 13.7 g/dL 12.0-16.0 Hematocrit 40 % 35-47 Mean Corpuscular Volume 92 fL 80-97 Mean Corpuscular Hemoglobin 32 pg High 27-31 Mean Corpuscular HGB Conc 34 g/dL 31-36 Red Cell Distribution Width 13 % 10.5-15 Platelet Count 279 10^3/uL 150-450 Mean Platelet Volume 9 um3 7.4-10.4 Comp Metabolic Panel 11/05/2012 [facility] Sodium 135 mmol/L 133-145 [phone] Potassium 4.4 mmol/L 3.5-5.0 Chloride 105 mmol/L [...] Egfr 88.7 >60 6 Laboratory test 11/05/2012 [facility] TSH (Thyroid 2.07 0.34-5.60 finding [phone] Stimulating miu/mL Horm) Erythrocyte Sed Rate 10 mm/Hr 0-14 Shannan (Anti-Nuclear AB) Screen Negative Negative Wheat Allergen IgE <0.35 kU/L 7 Antistreptolysin O Titer Negative IU/mL <200 Iu/mL 8 Celiac Panel 11/05/2012 [facility] Immunoglobulin A 210 mg/dL 61 - 356 [phone] Tissue Transglutaminase IgA Ab <1.2 U/mL 9 Celiac Interpretation See Comment 10 Laboratory test 11/05/2012 [facility] Cat Epithelium <0.35 kU/L 11 finding [phone] Allergen IgE Dog Dander Allergen IgE <0.35 kU/L 12 Alternaria tenuis IgE Allergen <0.35 kU/L 13 Aspergillus Fumigatus IgE <0.35 kU/L 14 Cladosporium herbarum IgE <0.35 kU/L 15 Helminthosporium halodes IgE <0.35 kU/L 16 Mucor racemosus Allergen IgE <0.35 kU/L 17 Penicillium notatum Allerg IgE <0.35 kU/L 18 Joya albicans Allergen IgE 9.90 kU/L 19 Comp Metabolic Panel 02/06/2012 [facility] Sodium 136 mmol/L 135-145 [phone] Potassium 4.2 mmol/L 3.5-5.0 Chloride 106 mmol/L [...] > 60 22 CBC Auto Diff 02/06/2012 [facility] White Blood 7.8 CUMM 4.8-10.8 [phone] Count Red Cell Count 4.37 CUMM 4.2-5.4 [...] Abs Basophils 0 0-0.2 Laboratory test 02/06/2012 [facility] TSH 1.92 MIU/ ML 0.34-5.60 finding [phone] Laboratory test 06/04/2011 [facility] Cytology ------ ------ 23 finding [phone] ---- <SEE NOTE> Urine DIP 05/16/2011 [facility] Leukocytes neg Neg (607)- - Urine Nitrites neg Neg Urine pH 5 5-6 Total Protein, Urine neg Neg Urine Glucose norm Norm Urine Ketones neg Neg Urobilinogen norm Norm Urine Bilirubin neg Neg Urine Blood neg Neg Specific [place] n/a Low 1.01-1.02 Laboratory test 05/16/2011 [facility] Varicella 2.03 High 0.00-0.90 24 finding [phone] Zoster V index AB,Igg Hep B Surface Antibody 108 mIU/ml 25 Laboratory test 12/03/2010 In House Lab Flu Test A&B, pos finding (607)- - [facility] test 06/08/2010 In House Lab Flu Test A&B, neg finding (607)- - [facility] test 04/22/2008 In House Lab Strep Screen neg Neg finding (607)- - Laboratory test 04/22/2008 [facility] Throat Culture NORMAL THROAT 26 finding [phone] Full FL <SEE NOTE> Mumps/Measles/Rube 12/31/2007 [facility] [place] Mumps Titer Igg 0.80 Index 27 lla [phone] AB Rubeola Titer Igg AB 2.10 Index [...] NEG Neg Urine Blood TRACE Neg Specific Kimball NA Low 1.01-1.02 Laboratory test 03/06/2005 [facility] Urine Culture MANY [STAPHYLOCO 30 finding [phone] Sensitivi <SEE NOTE> Urine DIP 01/30/2005 In [...] Class 0 (Negative <0.35) Test Performed by: [address] [address] [employer]: Speedy Leary III, M.D. 8 Normal values [...] VALUE -- <4.0 (Negative) Test Performed by: [place] [address] [employer]: Speedy Leary III, M.D. 10 Negative serology. Celiac disease unlikely. However, approximately 10% of patients with celiac disease are seronegative. Also, patients who are already adhering to a gluten-free diet may be seronegative. If celiac disease is highly clinically suspected, consider HLA-DQ typing. Test Performed by: [place] [address] [employer]: Speedy Leary III, M.D. 11 Class 0 (Negative <0.35) Test Performed by: [place] [address] [employer]: Speedy Leary III, M.D. 12 Class 0 (Negative <0.35) Test Performed by: [place] [address] [employer]: Speedy Leary III, M.D. 13 Class 0 (Negative <0.35) Test Performed by: [place] [address] [employer]: Speedy Leary III, M.D. 14 Class 0 (Negative <0.35) Test Performed by: [place] [address] [employer]: Speedy Leary III, M.D. 15 Class 0 (Negative <0.35) Test Performed by: [place] [address] [employer]: Speedy Leary III, M.D. 16 Class 0 (Negative <0.35) Test Performed by: [place] [address] [employer]: Speedy Leary III, M.D. 17 Class 0 (Negative <0.35) Test Performed by: [place] [address] [employer]: Speedy Leary III, M.D. 18 Class 0 (Negative <0.35) Test Performed by: [place] [address] [employer]: Speedy Leary III, M.D. 19 Class 3 (Positive 3.50-17.4) Test Performed by: [place] [address] [employer]: Speedy Leary III, M.D. 20 Anion gap measurement may be of limited value in the presence of any alkalosis, especially in a combined acid base disorder. . 21 A metabolite of Naproxen, O-desmethylnaproxen, has been shown to interfere with the Jendrbelkisik-Tiffanie method for measuring total bilirubin. Samples from [...] (or dialysis) 23 ---- RUN DATE: 06/05/11 [facility] NMI LIVE PAGE 1 RUN TIME: 1500 Specimen Inquiry RUN USER: INTERFACE -- Name: JANNETH HSU Status: REG REF Re06/04/11 Age/Sex: 41/F Unit#: [id number] Location: [facility] : 72 -- Specimen: [id number] SOUT Spec Date: 06/04/[address]: Ceci sheffield NP Spec Type: CYTOLOGY Received: 06/05/11-0815 Copies to: SOURCE ECTOCERVICAL/ENDOCERVICAL Thin Prep with [...] years. Final Interpretation electronically signed by: Nura HUGHES([facility]) 06/05/11 1500 -- -- DEPARTMENT OF PATHOLOGY, [address] [place] [address] [facility] Permit #[id number] Kyle Serna M.D. Director Jacob Ortega M.D. Washer Engineer Dir rome -- 24 Negative <0.91 Equivocal [...] (e.g. nitrofurantoin, trimethoprim+/- sulfamethoxazole, or a fluoroquinolone). [facility] September 2001 STAPHYLOCOCCUS SAPROPHYTICUS Procedures Description No Information Available Encounters Type Date Location Provider Dx Diagnosis Office Visit 06/10/2018 Main Office Becki Rivera, M54.5 Low back pain 9:15a HEAD FIELD HOCKEY COACH Office Visit 12/16/2017 Main Office Jesus Monge, R21 Rash and other 9:00a nonspecific skin eruption Z12.31 Encntr screen mammogram for malignant neoplasm of breast Office Visit 07/20/2015 1:30p Main Office Shane Zimmer, Z00.00 Encntr for general HL7 INTERFACE DEVELOPER-C adult medical exam w/o abnormal findings S46.012S Strain of musc/tend the rotator cuff of l shoulder, sequela Office Visit 06/11/2015 2:30p Main Office Shane Hough S29.011A Strain of muscle Storm, HL7 INTERFACE DEVELOPER-C and tendon of front wall of thorax, init Office Visit 06/06/2015 9:45a Main Office Ceci Corral S29.011A Strain of muscle HL7 INTERFACE DEVELOPER-C and tendon of front wall of thorax, init Office Visit 08/02/2013 3:45p Main Office Shane Hough 726.19 Shoulder Storm, HL7 INTERFACE DEVELOPER-C Disorders Other Spec 729.2 Neuralgia Neuritis & Radiculitis Unspec Office Visit 05/31/2013 10:45a Main Office Shane Zimmer, 726.19 Shoulder Disorders HL7 INTERFACE DEVELOPER-C Other Spec 723.1 Cervicalgia 850.9 Concussion Unspec 924.8 Contusion Multiple Sites Not Class Elsewhere Office Visit 11/22/2012 11:00a Main Office ROBERT Chance-C 723.1 Cervicalgia 726.19 Shoulder Disorders Other Spec Office Visit 11/05/2012 11:48a Main Office Shane Zimmer, 726.19 Shoulder Disorders HL7 INTERFACE DEVELOPER-C Other Spec 691.8 Dermatitis Atopic & Related Conditions Other Office Visit 11/05/2012 11:15a Main Office Shane NuviaGrupo Goran HL7 INTERFACE DEVELOPER-C 723.1 Cervicalgia 726.19 Shoulder Disorders Other Spec Office Visit 10/29/2012 12:00p Main Office Shane NuviaGrupo Goran HL7 INTERFACE DEVELOPER-C 723.1 Cervicalgia 726.19 Shoulder Disorders Other Spec Office Visit 10/25/2012 2:15p Main Office Shane NuviaGrupo Goran HL7 INTERFACE DEVELOPER-C 723.1 Cervicalgia 726.19 Shoulder Disorders Other Spec Office Visit 10/07/2012 4:30p Main Office Shane Hough 110.5 Dermatophytosis Body Storm, HL7 INTERFACE DEVELOPER-C 995.3 Allergy Unspec Office Visit 07/13/2012 2:00p Main Office Shane Hough 723.1 Cervicalgia Storm, HL7 INTERFACE DEVELOPER-C Office Visit 02/18/2012 11:30a Main Office Cassi Mendez 300.00 Anxiety State Tariq M.D. Unspec Office Visit 02/06/2012 11:45a Main Office Cassi Mendez 300.00 Anxiety State Tariq M.D. Unspec Office Visit 06/04/2011 9:00a Main Office Ceci Corral, V72.31 Routine [employer] Education Teacher HL[employer] INTERFACE DEVELOPER-C Examination Office Visit 05/16/2011 8:00a Main Office Ceci Corral, V70.0 Examination General HL7 INTERFACE DEVELOPER-C Medical Routine AT [facility] V06.1 Ddbdzjqbfh-Mtvixdq-Yalmdako Combined (DTaP) Office Visit 12/03/2010 10:45a Main Office Shane Hough 487.1 Influenza W/ Other Storm, HL7 INTERFACE DEVELOPER-C Respiratory Manifestations Office Visit 11/07/2010 3:00p Main Office Shane Hough 704.9 Hair & Hair Follicle Storm, HL7 INTERFACE DEVELOPER-C Diseases Unspec Office Visit 06/08/2010 9:30a Main Office Clayton Ambriz, 465.9 URI Upper M.D. Respiratory Infections Acute Unspec Sites Office Visit 04/22/2008 10:15a Main Office Ammy Santiago Pharyngitis Petar Fernandez M.D. 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 Office Visit 11/03/2006 10:45a Main Office Cassi Mendez 133.0 Scabikunal Potter M.D. 133.0 Scabies Office Visit 03/11/2005 11:00a Main Office Cassi Mendez 592.0 Calculus Of Sarah Potter Kidney 599.89 Urinary Tract Other Spec Disorders Office Visit 03/06/2005 4:30p Main Office Clayton Ambriz M.D. 599.0 UTI Urinary Tract Infection Site Not Spec Office Visit 01/30/2005 11:00a Main Office Ibis Ybarra 599.0 UTI Urinary Tract Daniel Chapa.N.P.CGrupo Infection Site Not Spec Plan of Treatment 06/10/2018 - Becki Rivera, NPM54.5 Low back painComments:No acute concerns today.Declined physical therapy.
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
[2018-06-18] MEDS ORDERED: Morphine INJ* 4 MG/ML 1 ML SYRINGE (NEW SYRINGE VERSION) ONE (17:12)
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
[2018-06-18 17:39] LABS: ABS Basophils 0 10^3/ul (0-0.2); ABS Eosinophils 0.1 10^3/ul (0-0.6); ABS Lymphocytes 2.3 10^3/ul (1.0-4.8); ABS Monocytes 0.5 10^3/ul (0-0.8); ABS Neutrophils 4.6 10^3/ul (1.5-7.7); ABS Nucleated RBC 0 10^3/ul; Eosinophil % 1.4 % (0-6); Hematocrit 38 % (35-47); Hemoglobin 13.2 g/dl (12.0-16.0); Mean Corpuscular HGB Conc 35 g/dl (31-36); Mean Corpuscular Hemoglobin 32 pg (27-31); Mean Corpuscular Volume 91 fL (80-97); Mean Platelet Volume 8.8 um3 (7.4-10.4); Nucleated Red Blood Cells % 0.1; Platelet Count 284 10^3/ul (150-450); Red Blood Count 4.16 10^6/ul (4.00-5.40); Red Cell Distribution Width 13 % (10.5-15); White Blood Count 7.5 10^3/ul (3.5-10.8)
[2018-06-18 18:00] LABS: EGFR Non-African American 65.4 (>60)
[2018-06-18] MEDS ORDERED: Iohexol 300* (CONTRAST) 10 ML SDV IV ONE (18:04)
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
[2018-06-18 18:53] VITALS: BP 115/73
== END 2018-06-18 18:52 | disposition home or self-care (01) ==
LOC: ED 16:28
DX: R07.9 Chest pain, unspecified (principal); M25.561 Pain in right knee; F17.210 Nicotine dependence, cigarettes, uncomplicated; V89.2XXA Person injured in unspecified motor-vehicle accident, traffic, initial encounter; Y92.9 Unspecified place or not applicable
CPT/HCPCS: 36415; 71260; 80053; 80320; 82550; 84484; 84702; 85025; 86850; 86900; 86901; 93005; 96374; 96375; 99282; G0480; J2270; J2405; Q9967